=== PATIENT | male | born 1965 | race Caucasian/White ===

== ENCOUNTER → 2019-03-01 | Outpatient (CLI) | payer BC, OTHER ==
--- NOTE | 2019-03-01 19:59 | Diagnostic Imaging Report ---
EXAMINATION: Magnetic resonance imaging of the right shoulder without contrast. DATE: March 01, 2019. COMPARISON: None. HISTORY: 53-year-old male, right shoulder injury lifting heavy object in October 2018. TECHNIQUE: Magnetic Resonance Imaging sequences were performed of the shoulder without contrast. FINDINGS: ROTATOR CUFF, LIGAMENTS, TENDONS, AND MUSCLES: There is a full-thickness fullwidth tear of the supraspinatus tendon with tendon retraction of 3.3 cm just medial to the superior humeral head. There is infraspinatus tendinopathy. The subscapularis tendon is intact. The teres minor tendon is intact. There is normal rotator cuff muscle bulk and signal. LONG HEAD OF BICEPS: The biceps labral attachment and long head of the biceps tendon is intact. The long head of the biceps tendon is normally positioned within the bicipital groove. GLENOHUMERAL JOINT: The humeral head is well positioned relative to the glenoid. The labrum is grossly intact. There is no identified paralabral cyst. The articular cartilage is grossly intact. There is no joint effusion. ACROMIOCLAVICULAR JOINT: The acromioclavicular joint is normally aligned. The coracoclavicular and coracoacromial ligaments are intact. There are mild acromioclavicular degenerative changes without large undersurface osteophyte. BONE: There is no os acromiale. Additional osseous morphology is unremarkable. There is no acute fracture, bone contusion or evidence of osteonecrosis. BURSAE AND SOFT TISSUES: There is fluid in the subacromial subdeltoid bursa compatible with the full-thickness rotator cuff tendon tear, bursitis and/or recent injection. IMPRESSION: 1. Full-thickness fullwidth tear of the supraspinatus tendon with tendon retraction, measuring 3.3 cm, just medial to the superior humeral head. No fatty muscle atrophy. Infraspinatus tendinopathy. 2. Mild acromioclavicular degenerative changes without large undersurface osteophyte. 3. Grossly intact labrum. Additional glenohumeral joint evaluation is unremarkable. 4. No acute fracture, bone contusion or evidence of osteonecrosis. Dictated by: Dictated on workstation # [id number]
== END ==
LOC: RAD 14:50
PROVIDERS: ATTEND Family Medicine
DX: S46.011A Strain of muscle(s) and tendon(s) of the rotator cuff of right shoulder, initial encounter (principal); M19.011 Primary osteoarthritis, right shoulder
CPT/HCPCS: 73221